=== PATIENT | female | born 1970 | race Caucasian/White ===

== ENCOUNTER 2017-07-21 18:14 | Emergency (ER) | payer MEDICAID ==
[2017-07-21] MEDS: LIDOCAINE 1% (MDV) 10 ML INJ INFIL (19:25)
[2017-07-21] MEDS: IBUPROFEN 200 MG TAB PO (19:39)
[2017-07-21 19:52] LABS: URINE BLOOD (Dip) POC Trace-lysed (NEGATIVE); URINE GLUCOSE (Dip) POC Negative (NEGATIVE); URINE KETONES (Dip) POC Negative (NEGATIVE); URINE LEUKOCYTE EST (Dip) POC Negative (NEGATIVE); URINE NITRITE (Dip) POC Negative (NEGATIVE); URINE TOTAL PROTEIN POC Negative (NEGATIVE)
[2017-07-21 19:52] LABS: URINE PH (Dip) POC 5.5 (5.0-8.5)
== END 2017-07-21 20:48 | disposition home or self-care (01) ==
LOC: FTE 18:14
DX: L73.9 Follicular disorder, unspecified (principal)
CPT/HCPCS: 10060; 81003; 81025; 99283-25

== ENCOUNTER 2017-07-23 10:36 | Emergency (ER) | payer MEDICAID | END 2017-07-23 11:39 | disposition home or self-care (01) | LOC: FTE 10:36 | DX: Z48.01 Encounter for change or removal of surgical wound dressing (principal) | CPT/HCPCS: 99281; Z7502 ==